=== PATIENT | male | born 1990 | race African-American/Black ===

== ENCOUNTER 2019-02-21 15:13 | Emergency (ER) | payer MEDICAID ==
[~2019-02-21] VITALS: Ht 170.2 cm; Wt 58.0 kg
[2019-02-21] MEDS ORDERED: SODIUM CHLORIDE 0.9% 1,000 ML IV ONE (15:26)
[2019-02-21 15:55] LABS: CHLORIDE 102 mEq/L (98-107)
[2019-02-21 15:58] LABS: BASOPHILS % 0.2 % (0.0-2.0); EOSINOPHILS % 0.2 % (0.0-5.0); HEMATOCRIT. 48.1 % (42.0-52.0); HEMOGLOBIN. 16.3 g/dL (14.0-18.0); LYMPHOCYTES % 9.7 % (20.0-50.0); MEAN CORPUSCULAR VOLUME 94.4 fL (80.0-94.0); MEAN PLATELET VOLUME 9.1 fl (7.4-10.4); MONOCYTES % 6.8 % (2.0-8.0); NEUTROPHILS % 83.1 % (40.0-76.0); PLATELET 242 x1000/uL (130-400); RED BLOOD CELL COUNT 5.09 mill/uL (4.7-6.1); RED CELL DISTRIBUTION WIDTH 13.1 % (11.6-14.6)
[2019-02-21] MEDS ORDERED: ONDANSETRON HCL 4MG/2ML INJ IV ONE (16:00)
[2019-02-21] MEDS ORDERED: MORPHINE SULFATE 4 MG/ML CPJ (NOT FOR IM USE) IV ONE (16:15)
[2019-02-21] MEDS ORDERED: FAMOTIDINE 20MG/2ML VIAL IV ONE (16:15)
[2019-02-21 17:21] LABS: *AMPHETAMINES SCREEN URINE NEGATIVE (NEGATIVE); *BARBITURATES SCREEN URINE NEGATIVE (NEGATIVE); *BENZODIAZEPINES SCREEN URINE NEGATIVE (NEGATIVE)
[2019-02-21 17:22] LABS: *COCAINE SCREEN URINE PRESUMTIVE POSITIVE (NEGATIVE); CANNABINOID URINE SCREEN PRESUMTIVE POSITIVE (NEGATIVE); METHADONE URINE SCREEN NEGATIVE (NEGATIVE); OPIATES URINE SCREEN PRESUMTIVE POSITIVE (NEGATIVE); PHENCYCLIDINE URINE SCREEN NEGATIVE (NEGATIVE)
[2019-02-21] MEDS ORDERED: LORAZEPAM 2MG/ML CPJ IV ONE (17:45)
[2019-02-21 18:00] VITALS: BP 128/76
== END 2019-02-21 18:00 | disposition home or self-care (01) ==
LOC: ER 15:13
DX: F14.129 Cocaine abuse with intoxication, unspecified (principal); R07.89 Other chest pain; R10.13 Epigastric pain; F10.10 Alcohol abuse, uncomplicated; Y90.0 Blood alcohol level of less than 20 mg/100 ml
CPT/HCPCS: 36415; 71045; 80053; 80305; 80320; 83880; 84484; 85025; 93005; 96361; 96374; 96375; 99284; J2060; J2270; J2405; J3490; J7030; G0480

== ENCOUNTER 2019-03-13 13:51 | Emergency (ER) | payer OTHER, MEDICAID ==
[~2019-03-13] VITALS: Ht 167.6 cm; Wt 65.0 kg
[2019-03-13 13:56] VITALS: BP 120/79
== END 2019-03-13 16:56 | disposition home or self-care (01) ==
LOC: ER 14:33
DX: R10.9 Unspecified abdominal pain (principal); Z87.442 Personal history of urinary calculi
CPT/HCPCS: 99283

== ENCOUNTER 2020-03-10 14:11 | Emergency (ER) | payer MEDICAID, OTHER ==
[~2020-03-10] VITALS: Ht 172.7 cm; Wt 65.0 kg
[2020-03-10] MEDS ORDERED: MORPHINE SULFATE 4 MG/ML CPJ (NOT FOR IM USE) IV ONE (14:30)
[2020-03-10] MEDS ORDERED: SODIUM CHLORIDE 0.9% 1,000 ML IV ONE (14:30)
[2020-03-10] MEDS ORDERED: TETANUS, DIPHTHERIA, PERTUSSIS VAC/PF 0.5ML (>7YR OLD) IM ONE (14:30)
[2020-03-10 14:46] VITALS: BP 111/65
[2020-03-10 15:02] LABS: BASOPHILS % 0.5 % (0.0-2.0); EOSINOPHILS % 1.1 % (0.0-5.0); HEMATOCRIT. 43.1 % (42.0-52.0); HEMOGLOBIN. 14.3 g/dL (14.0-18.0); LYMPHOCYTES % 34.7 % (20.0-50.0); MEAN CORPUSCULAR HEMOGLOBIN 31.3 pg (28.0-32.0); MEAN CORPUSCULAR VOLUME 94.6 fL (80.0-94.0); MEAN PLATELET VOLUME 9.4 fl (7.4-10.4); MONOCYTES % 4.5 % (2.0-8.0); NEUTROPHILS % 59.2 % (40.0-76.0); PLATELET 238 x1000/uL (130-400); RED BLOOD CELL COUNT 4.55 mill/uL (4.7-6.1); RED CELL DISTRIBUTION WIDTH 12.9 % (11.6-14.6)
[2020-03-10 15:08] LABS: CHLORIDE 109 mEq/L (98-107)
[2020-03-10] MEDS ORDERED: IOHEXOL-350 100 ML BOTTLE ONE (16:02)
== END 2020-03-10 16:43 | disposition short-term general hospital (02) ==
LOC: ER 14:11
DX: S32.59 Other specified fracture of pubis (principal); S32.591B Other specified fracture of right pubis, initial encounter for open fracture; S31.33XA Puncture wound without foreign body of scrotum and testes, initial encounter; S36.899A Unspecified injury of other intra-abdominal organs, initial encounter; S41.041A Puncture wound with foreign body of right shoulder, initial encounter; Z87.442 Personal history of urinary calculi; X93.XXXA Assault by handgun discharge, initial encounter; Y93.89 Activity, other specified; Y92.488 Other paved roadways as the place of occurrence of the external cause
CPT/HCPCS: 36415; 71275; 73030; 73590; 74174; 80053; 85025; 90471; 90715; 96361; 96374; 99285; J2270; J7030; Q9967

== ENCOUNTER 2022-06-28 08:20 | Emergency (ER) | payer MEDICAID ==
[~2022-06-28] VITALS: Ht 172.7 cm; Wt 63.6 kg
[2022-06-28] MEDS ORDERED: IBUPROFEN 600MG TABLET PO ONE (08:45)
[2022-06-28] MEDS ORDERED: KETOROLAC 60MG/2ML VIAL IM ONE (10:30)
[2022-06-28 10:37] VITALS: BP 151/92
[2022-06-28] MEDS ORDERED: IBUP-2029 MT (13:22)
[2022-06-28] MEDS ORDERED: AMOX-494 MT (13:23)
== END 2022-06-28 13:43 | disposition home or self-care (01) ==
LOC: ER 08:20
DX: B34.9 Viral infection, unspecified (principal); K08.89 Other specified disorders of teeth and supporting structures
CPT/HCPCS: 87070; 87430; 96372; 99283; J1885; Z7610

== ENCOUNTER 2024-01-03 09:04 | Emergency (ER) | payer MEDICAID ==
[~2024-01-03] VITALS: Ht 170.2 cm; Wt 63.0 kg
[~2024-01-03 09:04] MED LIST: AMOX-494 MT; IBUP-2029 MT
[2024-01-03 09:12] VITALS: O2SAT 99
[2024-01-03 09:15] VITALS: BP 137/81; PULSE 65; RESP 16; TEMP 98.4; O2SAT 99
[2024-01-03 10:38] LABS: BASOPHILS % 0.3 % (0.0-2.0); EOSINOPHILS % 0.9 % (0.0-5.0); HEMOGLOBIN. 14.6 g/dL (14.0-18.0); LYMPHOCYTES % 10.3 % (20.0-50.0); MEAN CORPUSCULAR HEMOGLOBIN 31.8 pg (28.0-32.0); MEAN CORPUSCULAR HGB CONC 32.4 g/dL (31.0-37.0); MEAN CORPUSCULAR VOLUME 98.2 fL (80.0-94.0); MEAN PLATELET VOLUME 8.4 fl (7.4-10.4); MONOCYTES % 7.6 % (2.0-8.0); NEUTROPHILS % 80.9 % (40.0-76.0); PLATELET 242 x1000/uL (130-400); RED BLOOD CELL COUNT 4.59 mill/uL (4.7-6.1); RED CELL DISTRIBUTION WIDTH 12.6 % (11.6-14.6); WHITE BLOOD COUNT 9.2 x1000/uL (4.5-11.0)
[2024-01-03 10:48] LABS: CHLORIDE 103 mEq/L (98-107); POTASSIUM 3.9 mEq/L (3.5-5.1); SODIUM 135 mEq/L (136-145)
[2024-01-03 10:49] LABS: CARBON DIOXIDE 27 mEq/L (21-32)
[2024-01-03 10:50] LABS: CALCIUM 9.6 mg/dL (8.7-10.4)
[2024-01-03 10:54] LABS: CREATININE 1.2 mg/dL (0.6-1.3); TROPONIN I HIGH SENSITIVITY 5 ng/L (3.0-53)
[2024-01-03 10:55] LABS: GLUCOSE 96 mg/dL (70-105); UREA NITROGEN BLOOD 7 mg/dL (9-23)
[2024-01-03] MEDS ORDERED: ONDANSETRON 4MG ODT PO ONE (11:00)
[2024-01-03] MEDS ORDERED: FAMOTIDINE 20MG TABLET PO ONE (11:00)
[2024-01-03] MEDS ORDERED: MAGNESIUM/ALUMINUM HYDROXIDE/SIMETHICONE 30ML UDC PO ONE (11:00)
[2024-01-03 11:37] LABS: ALANINE AMINOTRANSFERASE 31 IU/L (10-49); ALBUMIN 4.3 g/dL (3.2-4.8); ASPARTATE AMINOTRANSFERASE 29 IU/L (<34); BILIRUBIN DIRECT 0.2 mg/dL (<=3.0); BILIRUBIN TOTAL 0.9 mg/dL (0.1-1.0); PROTEIN TOTAL 7.2 g/dL (6.0-8.3)
[2024-01-03] MEDS: FAMOTIDINE 20MG TABLET PO SCH (14:37)
[2024-01-03] MEDS: MAGNESIUM/ALUMINUM HYDROXIDE/SIMETHICONE 30ML UDC PO SCH (14:37)
[2024-01-03] MEDS: ONDANSETRON 4MG ODT PO SCH (14:37)
[2024-01-03] MEDS ORDERED: FAMO-135 MT (14:44)
[2024-01-03] MEDS ORDERED: MAG355OR21 MT (14:44)
== END 2024-01-03 15:09 | disposition home or self-care (01) ==
LOC: ER 09:04
DX: K29.20 Alcoholic gastritis without bleeding (principal); F12.10 Cannabis abuse, uncomplicated
CPT/HCPCS: 99285; 71045; 80076; 80048; 83690; 85025; 84484; 36415; 93005; Q0162